=== PATIENT | male | born 1945 | race Hispanic/Latino ===

== ENCOUNTER 2024-01-14 10:23 | Outpatient (CLI) | payer OTHER | END 2024-01-14 10:24 | disposition home or self-care (01) | LOC: CSHRAD 10:23 | PROVIDERS: ATTEND Family Medicine | DX: S69.91XD Unspecified injury of right wrist, hand and finger(s), subsequent encounter (principal); M25.521 Pain in right elbow; M25.531 Pain in right wrist; M19.041 Primary osteoarthritis, right hand ==